=== PATIENT | male | born 1945 | race Caucasian/White ===

== ENCOUNTER 2016-06-28 20:50 | Observation (INO) | payer MEDICARE, OTHER ==
[~2016-06-28] VITALS: Ht 185.4 cm; Wt 125.0 kg
[2016-06-28 20:50] VITALS: BP_SYST 103; BP_SYST 104; BP_DIAS 52; BP_DIAS 63; PULSE 75; PULSE 81; RESP 16; RESP 18; TEMP 98.3; O2SAT 96; O2SAT 98
[2016-06-28 20:55] VITALS: BP_SYST 103; BP_DIAS 52; BP_DIAS 56; BP_DIAS 63; RESP 16; RESP 18
[2016-06-28] MEDS ORDERED: OMEP20TA PO (20:59)
[2016-06-28] MEDS ORDERED: SIMV20TA PO (20:59)
[2016-06-28] MEDS ORDERED: ALLO300T2 PO (20:59)
[2016-06-28] MEDS ORDERED: TAMS0.4C4 PO (20:59)
[2016-06-28] MEDS ORDERED: LISI-519 PO (20:59)
--- NOTE | 2016-06-28 21:20 | RADRPT ---
EXAM DATE/TIME: 06/28/2016 21:08 [facility] COMPARISON: No previous studies available for comparison. INDICATIONS : Palpitations. MEDICAL HISTORY : None. SURGICAL HISTORY : None. ENCOUNTER: Initial ACUITY: 1 day PAIN SCORE: 0/10 LOCATION: Bilateral chest FINDINGS: A single view of the chest demonstrates the lungs to be symmetrically aerated without evidence of mas s, infiltrate or effusion. The cardiomediastinal contours are unremarkable. Osseous structures are intact. There is anterior cervical fusion plate seen. CONCLUSION: No acute disease. Zacarias Leal MD on June 28, 2016 at 21:18 Board Certified Radiologist. This report was verified electronically.
--- NOTE | 2016-06-28 21:22 | RADRPT ---
EXAM DATE/TIME: 06/28/2016 21:12 [facility] COMPARISON: No previous studies available for comparison. INDICATIONS : Syncopal episode. RADIATION DOSE: 45.37 CTDIvol (mGy) MEDICAL HISTORY : Hypertension. SURGICAL HISTORY : None. ENCOUNTER: Initial ACUITY: 1 day PAIN SCALE: 0/10 LOCATION: cranial TECHNIQUE: Multiple contiguous axial images were obtained of the head. Using automated exposure control and adj ustment of the mA and/or kV according to patient size, radiation dose was kept as low as reasonably a chievable to obtain optimal diagnostic quality images. FINDINGS: CEREBRUM: The ventricles are normal for age. No evidence of midline shift, mass lesion, hemorrhage or acute in farction. No extra-axial fluid collections are seen. POSTERIOR FOSSA: The cerebellum and brainstem are intact. The 4th ventricle is midline. The cerebellopontine angle i s unremarkable. EXTRACRANIAL: The visualized portion of the orbits is intact. SKULL: The calvaria is intact. No evidence of skull fracture. CONCLUSION: Normal examination. Zacarias Leal MD on June 28, 2016 at 21:20 Board Certified Radiologist. This report was verified electronically.
[2016-06-28 21:25] LABS: AUTOMATED NEUTROPHIL # 5.5 TH/MM3 (1.8-7.7); BASOPHIL # 0.1 TH/MM3 (0-0.2); BASOPHIL % 0.7 % (0.0-2.0); EOSINOPHIL # 0.3 TH/MM3 (0-0.4); EOSINOPHIL % 3.5 % (0.0-4.0); HEMATOCRIT 43.7 % (39.0-51.0); HEMO FLAGS DIFF FINAL; LYMPH % 25.9 % (9.0-44.0); LYMPHOCYTE # 2.4 TH/MM3 (1.0-4.8); MEAN CORPUSCULAR HEMOGLOBIN 35.7 PG (27.0-34.0); MONO % 11.2 % (0.0-8.0); NEUT % 58.7 % (16.0-70.0); PLATELET COUNT 225 TH/MM3 (150-450); RED BLOOD COUNT 4.29 MIL/MM3 (4.50-5.90); RED CELL DISTRIBUTION WIDTH 14.6 % (11.6-17.2); WHITE BLOOD COUNT 9.3 TH/MM3 (4.0-11.0)
[2016-06-28 21:30] VITALS: BP 133/77; PULSE 70; RESP 16; O2SAT 98
[2016-06-28 21:34] LABS: PROTHROMBIN TIME - PATIENT 11.2 SEC (9.8-11.6)
[2016-06-28 21:39] LABS: ANION GAP 10 MEQ/L (5-15); BICARBONATE 24.1 MEQ/L (21.0-32.0); BLOOD UREA NITROGEN 16 MG/DL (7-18); CHLORIDE 103 MEQ/L (98-107); GLOMERULAR FILTRATION RATE 42 ML/MIN (>89); POTASSIUM 3.5 MEQ/L (3.5-5.1); SODIUM (NA) 137 MEQ/L (136-145)
[2016-06-28 21:43] LABS: CREATINE KINASE 186 U/L (39-308)
[2016-06-28 21:55] LABS: CKMB 5.3 NG/ML (0.5-3.6)
--- NOTE | 2016-06-28 22:37 | HHI.HP ---
[facility] Service [facility] Primary Care Physician Non-Staff Admission Diagnosis syncope Diagnoses: (1) Syncope Diagnosis: Principal (2) Chest pain Diagnosis: Principal (3) Renal insufficiency Diagnosis: Principal Travel History International Travel<30 Days: No Contact w/Intl Traveler <30 Da: No Traveled to Known Affected Are: No History of Present Illness This is a 70-year-old male with a PMH of HTN, Hyperlipidemia and Gout who is brought to the ER by EMS secondary to syncopal episode at home. Per , patient was eating dinner when he developed sudden right neck/jaw pain followed by syncopal episode. Patient with little recollection of events. No head trauma reported. Had episode of vomiting following syncope. No seizure activity noted. On arrival, BP 103/52, HR 81, O2 sat 96% on RA, Afebrile. Orthostatic vitals negative. CBC essentially unremarkable except for MCV 102. Creatinine 1.65, no previous labs for comparison. Troponin negative. EKG with no acute changes. UA essentially negative. CT Head and CT C-spine negative for acute findings. CXR negative. Review of Systems Other ROS: 14 point review of systems otherwise negative. Past Family Social History Past Medical History PMH: HTN, Hyperlipidemia and Gout Past Surgical History PAST SURGICAL HISTORY: Cataract Surgery Allergies: Coded Allergies: No Known Allergies (Unverified , 06/28/16) Family History PAST FAMILY HISTORY: Reviewed. No h/o DM or CAD Social History PAST SOCIAL HISTORY: Occasional alcohol. Negative for tobacco or drugs. Physical Exam Vital Signs Vital Signs Date Time Temp Pulse Resp B/P Pulse Ox O2 Delivery O2 Flow Rate FiO2 06/28/16 20:55 78 16 103/63 74 16 103/56 80 18 103/52 06/28/16 20:50 72 18 98 Room Air 06/28/16 20:50 98.3 81 16 104/63 96 06/28/16 20:50 75 18 103/52 98 Room Air Physical Exam PE: GENERAL: Pleasant middle-aged white male in no acute distress. HEENT: PERRLA, EOMI. No scleral icterus or conjunctival pallor. No lid lag or facial droop. CARDIOVASCULAR: Regular rate and rhythm. No obvious murmurs to auscultation. No chest tenderness to palpation. RESPIRATORY: No obvious rhonchi or wheezing. Clear to auscultation. Breath sounds equal bilaterally. GASTROINTESTINAL: Abdomen soft, non-tender, nondistended. BS normal. MUSCULOSKELETAL: Extremities without clubbing, cyanosis, or edema. No obvious deformities. NEUROLOGICAL: Awake, alert and oriented x4. No focal neurologic deficits. Moving both upper and lower extremities spontaneously. Laboratory Laboratory Tests Test 06/28/16 20:50 White Blood Count 9.3 Red Blood Count 4.29 Hemoglobin 15.3 Hematocrit 43.7 Mean Corpuscular Volume 102.0 Mean Corpuscular Hemoglobin 35.7 Mean Corpuscular Hemoglobin 35.0 Concent Red Cell Distribution Width 14.6 Platelet Count 225 Mean Platelet Volume 8.8 Neutrophils (%) (Auto) 58.7 Lymphocytes (%) (Auto) 25.9 Monocytes (%) (Auto) 11.2 Eosinophils (%) (Auto) 3.5 Basophils (%) (Auto) 0.7 Neutrophils # (Auto) 5.5 Lymphocytes # (Auto) 2.4 Monocytes # (Auto) 1.0 Eosinophils # (Auto) 0.3 Basophils # (Auto) 0.1 CBC Comment DIFF FINAL Differential Comment Prothrombin Time 11.2 Prothromb Time International 1.0 Ratio Activated Partial 25.0 Thromboplast Time Sodium Level 137 Potassium Level 3.5 Chloride Level 103 Carbon Dioxide Level 24.1 Anion Gap 10 Blood Urea Nitrogen 16 Creatinine 1.65 Estimat Glomerular Filtration 42 Rate Random Glucose 113 Calcium Level 8.3 Magnesium Level 2.0 Total Creatine Kinase 186 Creatine Kinase MB 5.3 Troponin I 0.02 Result Diagram: 06/28/16204906/28/162049 Assessment and Plan Problem List: (1) Syncope ICD Code: R55 Status: Acute (2) Chest pain ICD Code: R07.9 Status: Acute (3) Renal insufficiency ICD Code: N28.9 Status: Acute Assessment and Plan A/P: 1. Syncope: acute syncopal episode while having dinner, no h/o same. No head trauma reported. CT Head/C-Spine w/ no acute findings, images reviewed by me. Orthostatic vitals negative. Labs essentially unremarkable. Will admit for Observation, check serial cardiac enzymes and place on telemetry. 2. Chest Pain: reports transient episode of chest and neck/jaw pain prior to syncope, r/o ACS. Initial trop negative, EKG w/ no acute changes. Start ASA, resume home Statin. 3. Renal Insufficiency: Creatinine 1.65, no previous labs for comparison. U/ a negative. IVF, repeat labs in am. Hold Lisinopril. 4. DVT Prophylaxis: SCD/Teds. 5. Social work for d/c planning as needed. 6. Case discussed w/ ER physician at length. Problem Qualifiers (1) Syncope: Qualified Code: R55 - Syncope, unspecified syncope type Lovely Concepcion MD Jun 28, 2016 22:37
--- NOTE | 2016-06-28 22:38 | PD ---
HPI Chief Complaint: Syncope/Near-Syncope Time Seen by Provider: 22:25 Travel History International Travel<30 days: No Contact w/Intl Traveler<30days: No Traveled to known affect area: No History of Present Illness HPI 70-year-old male that presents to the ED for evaluation of syncopal episode. Patient comes here by ambulance. Patient apparently had a syncopal episode for about 3 minutes. Patient apparently was eating and he experienced some discomfort to his neck and jaw and then he lost consciousness. He does not remember what happened. He did not hit his head and per family she just kind of laid there. He will not respond to . He did threw up after the episode but after that he was fine. He did not complain of anything. Ambulance was contacted as family and were very concerned. Patient has never had anything like this but he does tell me that sometimes when he goes he gets somewhat dizzy when he stands of prolonged period time but he's actually never passed out. He denies any chest pain or palpitations. He denies any blurry vision or double vision. Denies any numbness, tilling, weakness. No symptoms at this time. Per patient he feels fine. No allergies to medication. No pain. He does not take any blood thinners. No history of heart disease on himself. No history of CVAs on himself. No history of TAS. PFSH Past Medical History Cardiovascular Problems: Yes (HTN) High Cholesterol: Yes GERD: Yes Gout: Yes Hypertension: Yes Tetanus Vaccination: Unknown Influenza Vaccination: Yes Past Surgical History Eye Surgery: Yes (CATARACT SURGERY) Social History Alcohol Use: Yes ("A COCKTAIL" ALMOST NIGHTLY) Tobacco Use: No Substance Use: No Allergies-Medications (Allergen,Severity, Reaction): Coded Allergies: No Known Allergies (Unverified , 06/28/16) Reported Meds & Prescriptions Reported Meds & Active Scripts Active Reported Omeprazole 20 Mg Tab 20 Mg PO DAILY Tamsulosin (Tamsulosin HCl) 0.4 Mg Cap 0.4 Mg PO BID Simvastatin 20 Mg Tab 20 Mg PO DAILY Lisinopril 5 Mg Tab 5 Mg PO DAILY Allopurinol 300 Mg Tab 300 Mg PO DAILY Review of Systems Except as stated in HPI: all other systems reviewed are Neg Physical Exam Narrative GENERAL: SKIN: Warm and dry. HEAD: Atraumatic. Normocephalic. EYES: Pupils equal and round. No scleral icterus. No injection or drainage. ENT: No nasal bleeding or discharge. Mucous membranes pink and moist. Tongue is midline. No uvula deviation. NECK: Trachea midline. No JVD. CARDIOVASCULAR: Regular rate and rhythm. No murmurs, S3, S4. RESPIRATORY: No accessory muscle use. Clear to auscultation. Breath sounds equal bilaterally. GASTROINTESTINAL: Abdomen soft, non-tender, nondistended. Hepatic and splenic margins not palpable. MUSCULOSKELETAL: Extremities without clubbing, cyanosis, or edema. No obvious deformities. Full range of motion of the upper and lower extremities bilaterally. 2 + bilaterally. No lumbar, thoracic, cervical spine tenderness to palpation. NEUROLOGICAL: Awake and alert. No obvious cranial nerve deficits. Motor grossly within normal limits. Five out of 5 muscle strength in the arms and legs. Normal speech. DTRs are 2+ pulses bilaterally. Sensation intact bilaterally. PSYCHIATRIC: Appropriate mood and affect; insight and judgment normal. Data Data Last Documented VS Vital Signs Date Time Temp Pulse Resp B/P Pulse Ox O2 Delivery O2 Flow Rate FiO2 06/28/16 20:55 78 16 103/63 74 16 103/56 80 18 103/52 06/28/16 20:50 98 Room Air 06/28/16 20:50 98.3 Orders Electrocardiogram (06/28/16 20:54) Basic Metabolic Panel (Bmp) (06/28/16 20:54) Complete Blood Count With Diff (06/28/16 20:54) Magnesium (Mg) (06/28/16 20:54) Ckmb (Isoenzyme) Profile (06/28/16 20:54) Troponin I (06/28/16 20:54) Act Partial Throm Time (Ptt) (06/28/16 20:54) Prothrombin Time / Inr (Pt) (06/28/16 20:54) Urinalysis - C+S If Indicated (06/28/16 20:54) Chest, Single Ap (06/28/16 20:54) Ct Brain W/O Iv Contrast(Rout) (06/28/16 20:54) Ecg Monitoring (06/28/16 20:54) Iv Access Insert/Monitor (06/28/16 20:54) Oximetry (06/28/16 20:54) Orthostatic Vital Signs (06/28/16 20:54) Ct Cerv Spine W/O Contrast (06/28/16 ) CKMB (06/28/16 20:50) CKMB% (06/28/16 20:50) Labs Laboratory Tests Test 06/28/16 20:50 White Blood Count 9.3 TH/MM3 Red Blood Count 4.29 MIL/MM3 Hemoglobin 15.3 GM/DL Hematocrit 43.7 % Mean Corpuscular Volume 102.0 FL Mean Corpuscular Hemoglobin 35.7 PG Mean Corpuscular Hemoglobin 35.0 % Concent Red Cell Distribution Width 14.6 % Platelet Count 225 TH/MM3 Mean Platelet Volume 8.8 FL Neutrophils (%) (Auto) 58.7 % Lymphocytes (%) (Auto) 25.9 % Monocytes (%) (Auto) 11.2 % Eosinophils (%) (Auto) 3.5 % Basophils (%) (Auto) 0.7 % Neutrophils # (Auto) 5.5 TH/MM3 Lymphocytes # (Auto) 2.4 TH/MM3 Monocytes # (Auto) 1.0 TH/MM3 Eosinophils # (Auto) 0.3 TH/MM3 Basophils # (Auto) 0.1 TH/MM3 CBC Comment DIFF FINAL Differential Comment Prothrombin Time 11.2 SEC Prothromb Time International 1.0 RATIO Ratio Activated Partial 25.0 SEC Thromboplast Time Sodium Level 137 MEQ/L Potassium Level 3.5 MEQ/L Chloride Level 103 MEQ/L Carbon Dioxide Level 24.1 MEQ/L Anion Gap 10 MEQ/L Blood Urea Nitrogen 16 MG/DL Creatinine 1.65 MG/DL Estimat Glomerular Filtration 42 ML/MIN Rate Random Glucose 113 MG/DL Calcium Level 8.3 MG/DL Magnesium Level 2.0 MG/DL Total Creatine Kinase 186 U/L Creatine Kinase MB 5.3 NG/ML Troponin I 0.02 NG/ML MDM Medical Decision Making Medical Screen Exam Complete: Yes Emergency Medical Condition: Yes Medical Record Reviewed: Yes Interpretation(s) CBC & BMP Diagram 06/28/16 20:50 Troponin negative, CK-MB negative. Last Impressions Head CT 06/28/162053 Signed Impressions: Service Date/Time: Tuesday, June 28, 2016 21:12 - CONCLUSION: Normal examination. Zacarias Leal MD Chest X-Ray 06/28/162053 Signed Impressions: Service Date/Time: Tuesday, June 28, 2016 21:08 - CONCLUSION: No acute disease. Zacarias Leal MD EKG shows sinus rhythm with no sign of acute ischemia or arrhythmia Differential Diagnosis Syncope versus ACS versus CVA versus TIA versus dehydration versus electrolyte abnormality Narrative Course 70-year-old male that presents to the ED for evaluation of syncope. Patient was properly examined and was found to have signs and symptoms consistent appears to be syncopal episode. Labs and imaging ordered. Patient agrees to proceed with plan. EKG, cardiac enzymes, labs and chest x-ray was CT of the head were essentially unremarkable. Case discussed in my attending who agrees with plan. Patient has normal orthostatics as well. Because this is patient's first syncopal episode and secondary to his age we recommend admission for further workup. He is agreeable with this. Case was discussed with Dr. Moses who agrees to admission. Procedures EKG Prior to Arrival: No Diagnosis Primary Impression: Syncope Qualified Code: R55 - Syncope, unspecified syncope type Admitting Information Admitting Physician Requests: Observation Robbie Seals Jun 28, 2016 22:38
--- NOTE | 2016-06-28 22:44 | RADRPT ---
EXAM DATE/TIME: 06/28/2016 22:06 [facility] COMPARISON: No previous studies available for comparison. INDICATIONS : Head trauma and dizziness. Chronic neck pain. RADIATION DOSE: 34.80 CTDIvol (mGy) MEDICAL HISTORY : Hypertension. SURGICAL HISTORY : Cervical fusion. ENCOUNTER: Subsequent ACUITY: 1 day PAIN SCALE: 3/10 LOCATION: neck TECHNIQUE: Volumetric scanning of the cervical spine was performed. Multiplanar reconstructions i n the sagittal, coronal and oblique axial planes were performed. Using automated exposure control a nd adjustment of the mA and/or kV according to patient size, radiation dose was kept as low as reason ably achievable to obtain optimal diagnostic quality images. FINDINGS: VERTEBRAE: The patient is status post fusion at the C5-C6 level with an anterior cervical fusion plate present. There does appear to be a stabilization device at the C5-C6 disc level. There appear s to be fusion at this level. There also appears to be prominent anterior osteophytes extending from C4 to the C5 level. There is also some prominent anterior osteophyte formation off the inferior asp ect of C3. Prominent anterior osteophytes are seen at the anterior C6-C7 level. There is hypertroph ic change at the anterior arch of C1. ALIGNMENT: No evidence of subluxation. C2-C3: The posterior disc space is grossly intact. There is a very prominent right facet hypertroph y. There is narrowing of the right neural foramina. The left neural foramina is patent. C3-C4: There is mild diffuse disc bulge. There is prominent facet hypertrophy on the left. There i s mild uncovertebral hypertrophy especially on the left. There is narrowing of the left neural brianna andreea. The right neural foramina appears grossly patent. C4-C5: There is minimal disc bulge. There is some posterior osteophytic ridging off the posterior s uperior aspect of C5 creating at least a mild impression on the anterior aspect of the thecal sac. T here is bilateral facet hypertrophy. The neural foramina are grossly normal. C5-C6: The patient is status post fusion at this level. A significant impression on the thecal sac is not seen. The neural foramina are patent. C6-C7: There is mild diffuse disc bulge. There is bilateral facet hypertrophy being worse on the le ft. The neural foramina are grossly normal. C7-T1: The bony spinal canal is normal in size. No evidence of disc bulge or herniation. The neura l foramina are bilaterally patent. There does appear to be a bony fragment seen at the posterior aspect of the T1 spinous process. This appears fairly well corticated suggesting likely it is chronic. CONCLUSION: Degenerative and postoperative changes as described above. An acute bony abnormality is not seen. Zacarias Leal MD on June 28, 2016 at 22:22 Board Certified Radiologist. This report was verified electronically.
[2016-06-28] MEDS ORDERED: ACETAMINOPHEN/HYDROcodone 325 MG/10 MG TAB PO PRN (22:45)
[2016-06-28] MEDS ORDERED: ONDANSETRON HCL 4 MG/2 ML VIAL IVP PRN (22:45)
[2016-06-28] MEDS ORDERED: BISACODYL 10 MG SUPP PR PRN (22:45)
[2016-06-28] MEDS ORDERED: ACETAMINOPHEN 325 MG TAB PO PRN (22:45)
[2016-06-28] MEDS ORDERED: ACETAMINOPHEN/HYDROcodone 325 MG/5 MG TAB PO PRN (22:45)
[2016-06-28] MEDS ORDERED: SODIUM CHLORIDE 0.9% FLUSH 5 ML FLUSH FLUSH PRN (22:45)
[2016-06-28 23:05] VITALS: BP 133/76; TEMP 98.5
[2016-06-28] MEDS: SODIUM CHLOR 0.9% 1000 ML INJ 1,000 ML IV SCH (23:40)
[2016-06-29 00:34] LABS: BLOOD, URINE NEG (NEG); COMMENT (UR) CULT NOT INDICATED; CULTURE IF INDICATED CULT NOT INDICATED; GLUCOSE,URINE NEG (NEG); HYALINE CAST, URINE 3 /lpf (RARE); KETONE, URINE NEG (NEG); MUCUS URINE MOD /lpf (OCC); NITRITE,URINE NEG (NEG); PH, URINE 5.5 (5.0-8.5); SQUAMOUS EPITHELIAL CELL URINE 1 /hpf (0-5); URINE COLOR YELLOW (YELLW/STRAW)
[2016-06-29 00:40] VITALS: PULSE 90
[2016-06-29 00:44] VITALS: BP 140/74; PULSE 90; RESP 20; TEMP 98; O2SAT 95
[2016-06-29 04:09] VITALS: BP 135/65; PULSE 75; RESP 20; TEMP 98.2; O2SAT 97
[2016-06-29 07:49] VITALS: BP 130/75; PULSE 74; RESP 18; TEMP 98.1; O2SAT 96
[2016-06-29 08:00] VITALS: PULSE 76
[2016-06-29] MEDS: SODIUM CHLOR 0.9% 1000 ML INJ 1,000 ML IV SCH (08:11)
[2016-06-29] MEDS ORDERED: PRAVASTATIN SOD 40 MG TAB PO SCH (09:00)
[2016-06-29] MEDS ORDERED: ALLOPURINOL 300 MG TAB PO SCH (09:00)
[2016-06-29] MEDS ORDERED: PANTOPRAZOLE SOD 20 MG DELAYED RELEASE TAB PO SCH (09:00)
[2016-06-29] MEDS ORDERED: ASPIRIN EC 81 MG TABEC PO SCH (09:00)
[2016-06-29] MEDS ORDERED: SODIUM CHLORIDE 0.9% FLUSH 5 ML FLUSH FLUSH SCH (09:00)
[2016-06-29] MEDS ORDERED: TAMSULOSIN HCL 0.4 MG CAP PO SCH (09:00)
[2016-06-29] MEDS ORDERED: ASPI81TA11 PO (11:30)
--- NOTE | 2016-06-29 11:30 | HHI.DCPOC ---
Discharge Care Plan Diagnosis: (1) Syncope (2) Renal insufficiency Goals to Promote Your Health * To prevent worsening of your condition and complications * To maintain your health at the optimal level Directions to Meet Your Goals Take your medications as prescribed Follow your dietary instruction Follow activity as directed Keep your appointments as scheduled Take your immunizations and boosters as scheduled If your symptoms worsen call your PCP, if no PCP go to Urgent Care Center or Emergency Room Smoking is Dangerous to Your Health. Avoid second hand smoke Call the 24-hour hour crisis hotline for domestic abuse at Natalya Andrade PA-C Jun 29, 2016 11:30 am
[2016-06-29 11:48] VITALS: BP 151/89; PULSE 71; RESP 18; TEMP 97.6; O2SAT 97
[2016-06-29 11:56] LABS: AUTOMATED NEUTROPHIL # 4.9 TH/MM3 (1.8-7.7); BASOPHIL % 0.5 % (0.0-2.0); EOSINOPHIL # 0.2 TH/MM3 (0-0.4); EOSINOPHIL % 2.8 % (0.0-4.0); HEMATOCRIT 42.4 % (39.0-51.0); HEMO FLAGS DIFF FINAL; LYMPH % 20.4 % (9.0-44.0); LYMPHOCYTE # 1.5 TH/MM3 (1.0-4.8); MEAN CELL VOLUME 101.9 FL (80.0-100.0); MEAN CORPUSCULAR HEMOGLOBIN 35.2 PG (27.0-34.0); MEAN CORPUSCULAR HGB CONC 34.6 % (32.0-36.0); MONO % 10.6 % (0.0-8.0); NEUT % 65.7 % (16.0-70.0); PLATELET COUNT 197 TH/MM3 (150-450); RED BLOOD COUNT 4.16 MIL/MM3 (4.50-5.90); RED CELL DISTRIBUTION WIDTH 14.9 % (11.6-17.2); WHITE BLOOD COUNT 7.5 TH/MM3 (4.0-11.0)
[2016-06-29 12:12] LABS: ANION GAP 8 MEQ/L (5-15); AST (GOT) 16 U/L (15-37); BICARBONATE 25.4 MEQ/L (21.0-32.0); BLOOD UREA NITROGEN 18 MG/DL (7-18); CHLORIDE 106 MEQ/L (98-107); GLOMERULAR FILTRATION RATE 69 ML/MIN (>89); POTASSIUM 3.9 MEQ/L (3.5-5.1); SODIUM (NA) 139 MEQ/L (136-145)
[2016-06-29 12:23] LABS: ALKALINE PHOSPHATASE 89 U/L (45-117); ALT (GPT) 25 U/L (12-78); CREATINE KINASE 150 U/L (39-308); TOTAL BILIRUBIN ADULT 0.5 MG/DL (0.2-1.0)
[2016-06-29 12:36] LABS: CKMB 4.9 NG/ML (0.5-3.6)
--- NOTE | 2016-06-29 13:32 | RADRPT ---
EXAM DATE/TIME: 06/29/2016 12:31 [facility] COMPARISON: No previous studies available for comparison. INDICATIONS : Syncope. MEDICAL HISTORY : Hypertension. Hypercholesterolemia. Gastroesophageal reflux disease. GOUT. SURGICAL HISTORY : Laminectomy.Fusion C5, C6 and C7. Cataracts. ENCOUNTER: Initial ACUITY: 1 day PAIN SCORE: 0/10 LOCATION: Bilateral neck PEAK SYSTOLIC VELOCITIES (cm/sec): ICA/CCA RATIO: Right: 1.0 Left: 0.8 ICA: Right: 101 Left: 88 CCA: Right: 104 Left: 108 ECA: Right: 138 Left: 116 VERTEBRAL: Right: 46 antegrade Left: 57 antegrade Elevated flow velocities and ICA/CCA ratios have been found to correlate with increased degrees of vessel stenosis, calculated as percentage of diameter relative to a normal segment of distal ICA/CCA FINDINGS: RIGHT CAROTID: No significant stenosis is visualized. The waveforms are within normal limits. LEFT CAROTID: No significant stenosis is visualized. The waveforms are within normal limits. VERTEBRAL ARTERIES: Antegrade flow is seen in both vertebral arteries. MISCELLANEOUS: None. CONCLUSION: Normal examination. Marcelo Cannon MD on June 29, 2016 at 13:31 Board Certified Radiologist. This report was verified electronically.
--- NOTE | 2016-06-29 14:11 | EKG ---
Date Performed: 06/28/2016 Time Performed: 20:59:39 PTAGE: 70 years EKG: Sinus rhythm NORMAL ECG NO PREVIOUS TRACING DOCTOR: Alexandre Messer Interpretating Date/Time 06/29/2016 14:10:04
--- NOTE | 2016-06-29 16:13 | HHI.PR ---
Subjective Remarks Follow-up for syncope. Patient reports feeling completely back to normal since his arrival. He describes that ever since he had his neck surgery, he will occasionally get the TMJ/jaw pain which is similar to what he had last night prior to the episode. Patient's is at bedside who assists with the history as the patient does not recall the entire event yesterday. She states after he complained of the jaw pain, he started to then slump to the right side in his chair, eyes open, with a blank stare and unresponsive. After 2-3 minutes, the patient became responsive but then vomited shortly after. In the past, approximately twice a year, the patient will have episodes of lightheadedness and tunnel vision, usually after playing golf, and was told that this could be related to taking his lisinopril. He was instructed by his PCP in the past to not take his lisinopril on days that he plays golf. Recently, the patient went 3 days without taking his lisinopril, however took the first dose again yesterday morning. He felt ok throughout the day, went to dinner last night when this episode happened at the restaurant. He does drink 2 alcoholic beverages daily and did so yesterday. Since the patient feels back to normal, he adamantly wants to go home. He explains that it is his mother's 90th birthday green party today and he is in charge of the cooking. He is absolutely willing to do echocardiogram and f/up with PCP as outpatient. He agrees to stay in the hospital for carotid U/S. Also discussed his renal function which the patient has been told in the past he has some renal insufficiency, unknown baseline. He states he follows with a Dr. Riley Jiang in [place] [id number] now. He also follows with a neurosurgeon in [place], [place]. Objective Vitals Vital Signs Date Time Temp Pulse Resp B/P Pulse Ox O2 Delivery O2 Flow Rate FiO2 06/29/16 11:48 97.6 71 18 151/89 97 06/29/16 08:00 76 06/29/16 07:49 98.1 74 18 130/75 96 06/29/16 04:09 98.2 75 20 135/65 97 06/29/16 00:44 98.0 90 20 140/74 95 06/29/16 00:40 90 06/28/16 23:05 98.5 72 16 133/76 98 06/28/16 21:30 70 16 133/77 98 Room Air 06/28/16 20:55 78 16 103/63 74 16 103/56 80 18 103/52 06/28/16 20:50 72 18 98 Room Air 06/28/16 20:50 98.3 81 16 104/63 96 06/28/16 20:50 75 18 103/52 98 Room Air I/O 06/28/16 06/28/16 06/28/16 06/29/16 06/29/16 06/29/16 07:00 15:00 23:00 07:00 15:00 23:00 Intake Total 890 ml Balance 890 ml Intake Oral 240 ml IV Total 650 ml # Voids 2 Result Diagram: 06/29/16 1140 06/29/16 1140 Imaging Last Impressions Head CT 06/28/162053 Signed Impressions: Service Date/Time: Tuesday, June 28, 2016 21:12 - CONCLUSION: Normal examination. Zacarias Leal MD Chest X-Ray 06/28/162053 Signed Impressions: Service Date/Time: Tuesday, June 28, 2016 21:08 - CONCLUSION: No acute disease. Zacarias Leal MD Cervical Spine CT 06/28/16 0000 Signed Impressions: Service Date/Time: Tuesday, June 28, 2016 22:06 - CONCLUSION: Degenerative and postoperative changes as described above. An acute bony abnormality is not seen. Zacarias Leal MD Objective Remarks GENERAL: Well-nourished, well-developed male patient in [facility]. SKIN: Warm and dry. No rash. HEAD: Normocephalic. Atraumatic. EYES: Pupils equal and round. No scleral icterus. No injection or drainage. ENT: No nasal bleeding or discharge. Mucous membranes pink and moist. NECK: Supple. Trachea midline. CARDIOVASCULAR: Regular rate and rhythm. S1, S2 noted. No murmur appreciated. RESPIRATORY: No accessory muscle use. Clear to auscultation. Breath sounds equal bilaterally. GASTROINTESTINAL: Abdomen soft, non-tender, nondistended. Normoactive bowel sounds x4. MUSCULOSKELETAL: No obvious deformities. Extremities without clubbing, cyanosis , or edema. NEUROLOGICAL: Awake and alert. No obvious cranial nerve deficits. Motor grossly within normal limits. 5/5 muscle strength in RUE/LUE and LLE, 4/5 strength of RLE. 2+ patellar DTR on left, 3+ patellar DTR on right. Normal speech. PSYCHIATRIC: Appropriate mood and affect; insight and judgment normal. Urinary Catheter: No Vascular Central Line Catheter: No A/P Problem List: (1) Syncope ICD Code: R55 Status: Acute (2) Chest pain ICD Code: R07.9 Status: Acute (3) Renal insufficiency ICD Code: N28.9 Status: Acute Assessment and Plan 70-year-old male with a PMH of HTN, Hyperlipidemia and Gout who is brought to the ER by EMS secondary to syncopal episode while at a restaurant Syncope: acute syncopal episode while having dinner, prior history of lightheadedness/tunnel vision when taking lisinopril. No head trauma. CT Head/ C-Spine w/ no acute findings, images reviewed by me. Orthostatic vitals negative. Labs essentially unremarkable except for JAVAD. Telemetry unremarkable. ACS ruled out as below. Suspect secondary to taking lisinopril, patient went 3 days without taking lisinopril, then took first dose yesterday morning. Carotid U/S unremarkable. Patient adamantly requesting discharge for mother's 90th birthday, agrees to f/up with a local PCP and obtain echocardiogram as outpatient. Instructed to stop lisinopril, monitor daily BPs. Symptoms resolved. Chest Pain, atypical: reports transient episode of neck/jaw pain prior to syncope, this is typical pains he occasionally gets since his neck fusion surgery many years ago. ACS ruled out with negative serial cardiac enzymes x3 and EKG w/ no acute changes. Started on baby ASA, resume home Statin. Jaw pain resolved. JAVAD: Creatinine 1.65, no previous labs for comparison, however patient reports possible history of CKD. U/a negative. IVF, repeat labs today show much improvement with Cr 1.07. Discontinued Lisinopril as above. DVT Prophylaxis: SCD/Teds. Written by Natalya Andrade, acting as scribe for Dr. Marquez on 06/29/16 at 11:20. Discharge Planning Discharge patient to home Condition on discharge: Improved Heart Healthy Diet as tolerated Ad [place] activity Rx written: aspirin 81mg daily, stop lisinopril Follow-up with primary care physician (referred to Dr. Gomez) Obtain echocardiogram as outpatient Attending Statement The documentation accurately reflects the work performed [id number] by me, Dr. Marquez on 06/29/16 at 11:20. Problem Qualifiers (1) Syncope: Qualified Code: R55 - Syncope, unspecified syncope type Natalya Andrade PA-C Jun 29, 2016 16:13 Earnest Marquez MD Jun 30, 2016 02:12
== END 2016-06-29 14:51 | disposition home or self-care (01) ==
LOC: NEPC 20:50 → NEDA 22:36 → NEPGCP 23:17
PROVIDERS: ADMIT Internal Medicine; ATTEND Internal Medicine
DX: R55 Syncope and collapse (principal); R07.89 Other chest pain; N17.9 Acute kidney failure, unspecified; N18.9 Chronic kidney disease, unspecified; I12.9 Hypertensive chronic kidney disease with stage 1 through stage 4 chronic kidney disease, or unspecified chronic kidney disease; M10.9 Gout, unspecified; E78.5 Hyperlipidemia, unspecified; R68.84 Jaw pain; R11.10 Vomiting, unspecified; E78.00 Pure hypercholesterolemia, unspecified; K21.9 Gastro-esophageal reflux disease without esophagitis; Z79.899 Other long term (current) drug therapy
CPT/HCPCS: 70450; 71010; 72125; 80048; 80053; 81001; 82550; 82552; 83735; 84443; 84484; 85025; 85610; 85730; 93005; 93880; 99285; G0378; J7030